=== PATIENT | female | born 1990 | race Caucasian/White ===

== ENCOUNTER 2018-02-24 18:52 | Emergency (ER) | payer OTHER ==
[~2018-02-24] VITALS: Ht 154.9 cm; Wt 45.4 kg
[~2018-02-24 18:52] MED LIST: HYDROCODONE-AP1 EAC6 PO; ONDANSETRON HCL4 M2 PO; ZOFRAN ODT4 MG PO
[2018-02-24] MEDS ORDERED: PHENERGAN 25 MG25 MG PO (19:57)
[2018-02-24] MEDS ORDERED: TRAMADOL 50 MG50 MG PO (19:57)
[2018-02-24] MEDS ORDERED: PENICILLIN V P500 MG PO (19:57)
[2018-02-24 20:04] VITALS: BP 121/68
== END 2018-02-24 20:06 | disposition home or self-care (01) ==
LOC: M.ERS 18:52
DX: K04.7 Periapical abscess without sinus (principal); F17.210 Nicotine dependence, cigarettes, uncomplicated; Z90.49 Acquired absence of other specified parts of digestive tract; Z87.442 Personal history of urinary calculi; Z90.721 Acquired absence of ovaries, unilateral; Z88.8 Allergy status to other drugs, medicaments and biological substances

== ENCOUNTER 2019-04-12 12:19 | Emergency (ER) | payer OTHER ==
[~2019-04-12] VITALS: Ht 154.9 cm; Wt 47.6 kg
[~2019-04-12 12:19] MED LIST changes: +PENICILLIN V P500 MG PO; +PHENERGAN 25 MG25 MG PO; +TRAMADOL 50 MG50 MG PO
[2019-04-12 14:48] VITALS: BP 138/78
== END 2019-04-12 14:50 | disposition home or self-care (01) ==
LOC: M.ERS 12:19
DX: S72.445 Nondisplaced fracture of lower epiphysis (separation) of left femur (principal); K50.90 Crohn's disease, unspecified, without complications; F17.210 Nicotine dependence, cigarettes, uncomplicated; Z90.49 Acquired absence of other specified parts of digestive tract; Z87.442 Personal history of urinary calculi; Z90.721 Acquired absence of ovaries, unilateral; Z88.8 Allergy status to other drugs, medicaments and biological substances; W18.39XA Other fall on same level, initial encounter; Y93.89 Activity, other specified; Y92.090 Kitchen in other non-institutional residence as the place of occurrence of the external cause; Y99.8 Other external cause status